=== PATIENT | female | born 1945 | race Caucasian/White ===

== ENCOUNTER 2018-08-08 11:40 | Emergency (ER) | payer OTHER ==
[2018-08-08 12:18] LABS: BASOPHILS % (AUTO) 0.4 % (0.0-5.0); EOSINOPHILS % (AUTO) 1.7 % (0.0-8.0); HEMATOCRIT 42.6 % (36-48); LYMPHOCYTES % (AUTO) 29.3 % (21.0-51.0); MEAN CORPUSCULAR HEMOGLOBIN 31.5 pg (27.0-33.0); MEAN CORPUSCULAR HGB CONC 34.3 g/dL (32.0-36.0); MEAN CORPUSCULAR VOLUME 91.8 fL (79-99); MONOCYTES % (AUTO) 9.8 % (3.0-13.0); NEUTROPHILS % (AUTO) 58.8 % (40.0-77.0); NUCLEATED RED BLOOD CELLS 0.1 % (0.0-0.19); PLATELET COUNT (AUTO) 186 K/uL (130-400); RED BLOOD CELL COUNT(AUTO) 4.64 MIL/uL (4.00-5.50); RED CELL DISTRIBUTION WIDTH 12.9 % (11.0-15.5); WHITE BLOOD COUNT (AUTO) 4.6 K/uL (4.8-10.8)
[2018-08-08 12:34] LABS: INR 0.94 (0.85-1.15); PARTIAL THROMBOPLASTIN TIME 29.6 SEC (26.3-35.5); PROTHROMBIN TIME 9.9 SEC (9.6-11.6)
[2018-08-08 12:53] LABS: B-TYPE NATRIURETIC PEPTIDE 9 pg/mL (0-100)
[2018-08-08 13:01] LABS: CREATININE 0.9 mg/dL (0.5-1.5)
[2018-08-08 13:14] LABS: ALBUMIN 4.1 g/dL (3.5-5.0); BILIRUBIN,TOTAL 0.4 mg/dL (0.2-1.0); TOTAL PROTEIN, SERUM 8.4 g/dL (6.0-8.3)
== END 2018-08-08 13:39 | disposition home or self-care (01) ==
LOC: EDH 11:40
DX: R07.89 Other chest pain (principal); R11.2 Nausea with vomiting, unspecified; R19.7 Diarrhea, unspecified; E78.5 Hyperlipidemia, unspecified; I10 Essential (primary) hypertension; Z88.0 Allergy status to penicillin; Z88.2 Allergy status to sulfonamides; Z87.891 Personal history of nicotine dependence
CPT/HCPCS: 36415; 71045; 80053; 82550; 83874; 83880; 84484; 85025; 85610; 85730; 93005

== ENCOUNTER 2023-08-31 15:43 | Emergency (ER) | payer MEDICARE, OTHER ==
[~2023-08-31] VITALS: Ht 154.9 cm; Wt 71.2 kg
[2023-08-31] MEDS: MORPHINE 4 MG SYG IVP ONE (17:10)
[2023-08-31] MEDS: ONDANSETRON 4MG INJ IVP ONE (17:10)
[2023-08-31] MEDS: KETOROLAC 15MG/ML VIAL (15MG/ML) IV ONE (17:10)
[2023-08-31] MEDS ORDERED: ACET-2079 PO (17:42)
[2023-08-31] MEDS ORDERED: IBUP-2070 PO (17:42)
[2023-08-31 18:05] VITALS: BP 134/58; PULSE 72; RESP 18; O2SAT 98
== END 2023-08-31 18:22 | disposition home or self-care (01) ==
LOC: EDH 15:43
DX: S42.391A Other fracture of shaft of right humerus, initial encounter for closed fracture (principal); S63.682A Other sprain of left thumb, initial encounter; M25.561 Pain in right knee; I10 Essential (primary) hypertension; E78.00 Pure hypercholesterolemia, unspecified; Z90.49 Acquired absence of other specified parts of digestive tract; Z88.0 Allergy status to penicillin; Z88.2 Allergy status to sulfonamides; Z98.890 Other specified postprocedural states; W01.0XXA Fall on same level from slipping, tripping and stumbling without subsequent striking against object, initial encounter; Y93.89 Activity, other specified; Y92.89 Other specified places as the place of occurrence of the external cause; Y99.8 Other external cause status
CPT/HCPCS: 99284; 96374; 96375; 73562; 73030; 73140; J2405; J2270; J1885

== ENCOUNTER 2023-09-03 08:54 | Emergency (ER) | payer MEDICARE ==
[~2023-09-03] VITALS: Ht 154.9 cm; Wt 69.9 kg
[~2023-09-03 08:54] MED LIST: ACET-2079 PO; IBUP-2070 PO
[2023-09-03 09:47] VITALS: BP 171/67; PULSE 60; RESP 18; O2SAT 98
[2023-09-03] MEDS: LISINOPRIL 20 MG TABLET PO ONE (10:00)
[2023-09-03] MEDS ORDERED: LISI10TA24 PO (10:06)
== END 2023-09-03 10:48 | disposition home or self-care (01) ==
LOC: EDH 08:54
DX: I10 Essential (primary) hypertension (principal); Z76.0 Encounter for issue of repeat prescription; E78.00 Pure hypercholesterolemia, unspecified; Z88.0 Allergy status to penicillin; Z88.2 Allergy status to sulfonamides